=== PATIENT | male | born 1960 | race Asian ===

== ENCOUNTER 2020-03-16 09:41 | Emergency (ER) | payer MEDICAID ==
[~2020-03-16] VITALS: Ht 172.7 cm; Wt 72.6 kg
[2020-03-16 13:14] LABS: CALCIUM 8.8 mg/dL (8.5-10.1); CARBON DIOXIDE 31.4 mmol/L (21-32); CHLORIDE SERUM 103 mmol/L (98-107); CREATININE SERUM 0.9 mg/dL (0.7-1.3); GFR1 > 60 mL/min; GLUCOSE SERUM 103 mg/dL (74-106); POTASSIUM SERUM 4.7 mmol/L (3.5-5.1); SODIUM SERUM 139 mmol/L (136-145)
[2020-03-16 13:19] LABS: ALBUMIN 3.7 g/dL (3.4-5.0); ALKALINE PHOSPHATASE 49 U/L (46-116); ALT/SGPT 43 U/L (16-63); AST/SGOT 34 U/L (15-37); BASOPHIL % 1.2 % (0.2-1.5); BILIRUBIN TOTAL 0.63 mg/dL (0.20-1.00); PLATELET COUNT 196 x10^3mcL (152-348); RED CELL DISTRIBUTION WIDTH 13.1 % (12.1-16.2); TOTAL PROTEIN, SERUM 6.8 g/dL (6.4-8.2)
[2020-03-16 14:26] LABS: rbc morphology (normal/abnorm) NORMAL (NORMAL)
[2020-03-16 16:24] VITALS: BP 154/89
== END 2020-03-16 16:24 | disposition home or self-care (01) ==
LOC: ED 09:41
PROVIDERS: Emergency Medicine
DX: R07.89 Other chest pain (principal); I10 Essential (primary) hypertension; R51.9 Headache, unspecified; R06.02 Shortness of breath